=== PATIENT | male | born 1960 | race Caucasian/White ===

== ENCOUNTER 2017-05-17 12:57 | Emergency (ER) | payer OTHER ==
[2017-05-17 13:17] VITALS: RESP 16
[2017-05-17] MEDS ORDERED: ONDANSETRON DISINTEGRATING 4 MG TAB PO ONE (13:21)
--- NOTE | 2017-05-17 13:26 | CPEKG ---
Heart Rate: 73 RR Interval: 822 P-R Interval: 244 QRSD Interval: 108 QT Interval: 380 QTC Interval: 419 P Republic: 43 QRS Republic: -23 T Wave Republic: 11 EKG Severity - ABNORMAL ECG - EKG Impression: SINUS RHYTHM EKG Impression: FIRST DEGREE AV BLOCK Electronically Signed By: Vinh Sands 17-May-2017 15:09:24
--- NOTE | 2017-05-17 13:27 | EDPHY ---
H & P Time Seen by Provider: 05/17/17 13:10 HPI/ROS: HPI Cough, congestion. 57-year-old male by private vehicle. This patient just returned from a trip abroad to [facility]. He has been gone for 3 weeks. He returned yesterday. He reports that 2-3 days into his trip to [facility] he developed a cough productive of clear sputum with nasal congestion and clear rhinorrhea puffiness in his eyes, sore throat and a fullness sensation in his left ear. He was seen at a clinic in [place] the day before yesterday. He was prescribed Augmentin as well as Levaquin. He reports that he took 1 of the Augmentin tablets today but otherwise has not taken any of the other medications. He complains of continued symptoms as above with a nonproductive cough. He states that he has shortness of breath associated with the cough only. When he is not coughing he does not feel short of breath. When he is not coughing and physically exerting himself he does not feel short of breath. He has had some intermittent subjective fevers but not today. ROS: Constitutional: As above, no chills. No weakness. Eyes: No discharge. No changes in vision. ENT: As above. Respiratory: As above. Cardiac: No chest pain, no palpitations. Gastrointestinal: He has had mild nausea. No abdominal pain, no vomiting, no diarrhea. Genitourinary: No hematuria. No dysuria or increased frequency with urination. Musculoskeletal: No back pain. No neck pain. No myalgias or arthralgias. Skin: No rashes. Neurological: No headache. No focal weakness or altered sensation. Past medical history: Hypertension. Social history: Nonsmoker. He is here by himself. Drinks alcohol occasionally. Physical Exam: General Appearance: Alert, no distress. This patient is responding to questions appropriately and in full sentences. This patient appears well- hydrated and well-nourished. Eyes: Pupils equal and round no pallor or injection. No lid edema, erythema or injection. ENT, Mouth: Mucous membranes are moist. The pharyngeal tissues are unremarkable. No edema or swelling. No asymmetry suggestive of abscess. No erythema or exudates. Right tympanic membrane and external auditory canal are unremarkable on exam. Landmarks are clearly identifiable. Left external auditory canal is moderately edematous and swollen. The left tympanic membrane is moderately hyperemic but landmarks are identifiable. Respiratory: There are no retractions, lungs are clear to auscultation with good air movement bilaterally. Cardiovascular: Regular rate and rhythm. No murmur. Gastrointestinal: Abdomen is soft and nontender, no masses, bowel sounds normal. No focal tenderness at McBurney's point. No Whitaker sign. Neurological: Motor sensory function is grossly intact. Cranial nerves are normal. Gait is normal. Skin: Warm and dry, no rashes. Musculoskeletal: Neck is supple and nontender. No pain on flexion of the neck. No cervical, submental, submandibular lymphadenopathy. Extremities are symmetrical. All joints range without pain or impingement. Psychiatric: No agitation. No depression. Database: EKG: EKG time is 1:24 p.m.; EKG shows a narrow complex normal sinus rhythm with a ventricular rate of 73. Borderline first-degree AV block noted. The QRS, QT intervals are within normal limits. There are no ST-T wave changes indicative of ischemic or injury pattern. No evidence of right heart strain. Interpreted by me. Imaging: Chest x-ray PA and lateral; the cardiac mediastinal silhouette is unremarkable. No evidence of infiltrate or pneumothorax. Mild bronchitis. No other acute cardiopulmonary disease process noted. Interpreted by me. Procedures: Emergency department course: Vital signs reviewed. He is hypertensive. Vital signs are otherwise normal. He will be given 0.4 mg of oral Zofran for nausea. Chest x-ray and EKG obtained. 2:30 p.m., patient re-evaluated. Patient given 500 mg of amoxicillin orally and Ciprodex drops to the left ear for treatment of otitis externa and likely otitis media. Discussed results of his EKG and chest x-ray with him. Vital signs reviewed again and are unremarkable other than hypertension. Patient feels comfortable going home and I feel he is safe for discharge. He will be prescribed amoxicillin and Ciprodex. I discussed follow-up with his primary care physician for re-evaluation on Friday or Friday of this week. Return to emergency department precautions reviewed with him. All of his questions were answered. He was discharged in good condition. Differential Diagnosis: The differential diagnosis on this patient includes but is not limited to viral syndrome, bronchitis, possible otitis media with otitis externa. Pneumonia unlikely. This represents a partial list of diagnoses considered. These considerations are based on history, physical exam, past history, reassessment and diagnostic testing. Smoking Status: Never smoked Constitutional: Initial Vital Signs Temperature (C) 36.3 C 05/17/17 13:15 Heart Rate 78 05/17/17 13:15 Respiratory Rate 16 05/17/17 13:15 Blood Pressure 178/104 H 05/17/17 13:15 O2 Sat (%) 92 05/17/17 13:15 O2 Delivery Mode Room Air Allergies/Adverse Reactions: No Known Allergies Allergy (Verified 05/17/17 13:19) Home Medications: Medication Instructions Recorded Amoxicillin 05/17/17 Amoxicillin Trihydrate 500 mg PO Q6HRS #28 cap 05/17/17 [Amoxicillin 500mg cap] Atrovent Hfa (*) 05/17/17 Augmentin 500/125 MG TAB (*) 05/17/17 Levofloxacin 05/17/17 Medical Decision Making - Data Points Medications Given: Discontinued Medications Ondansetron HCl (Zofran Odt) 4 mg PO EDNOW ONE Stop: 05/17/17 13:22 Last Admin: 05/17/17 13:28 Dose: 4 mg Departure - Departure Disposition: Home, Routine, Self-Care Clinical Impression: Bronchitis, Upper respiratory infection, Otitis externa, Otitis media Condition: Good Instructions: Ear Infection (ED), Acute Bronchitis (ED) Additional Instructions: Read and follow provided instructions. Follow-up with your primary care physician in 1-2 days for re-evaluation. Take amoxicillin antibiotic as prescribed through entire course of treatment. Ciprodex and miotic drops: 4 drops into left ear twice daily for 5 days. Disregard and do not take the medications your prescribed in [place]. Return to the emergency department for worsening symptoms, worsening cough, high fever, shortness of breath, worsening ear pain, facial swelling or other serious concerns. Referrals: ESTEFANI ROLDAN [Primary Care Provider] - As per Instructions Prescriptions: Amoxicillin Trihydrate [Amoxicillin 500mg cap] 500 mg PO Q6HRS #28 cap
[2017-05-17] MEDS ORDERED: CIPROFLOXACIN HCL/DEXAMETH 7.5 ML OTIC DROPS LEFTEAR ONE (14:34)
[2017-05-17 14:58] VITALS: BP 132/85; PULSE 73; TEMP 98; O2SAT 93
== END 2017-05-17 14:59 | disposition home or self-care (01) ==
LOC: CED 12:57
DX: J20.9 Acute bronchitis, unspecified (principal); J06.9 Acute upper respiratory infection, unspecified; H60.92 Unspecified otitis externa, left ear; H66.92 Otitis media, unspecified, left ear; I10 Essential (primary) hypertension
CPT/HCPCS: 71046-PO

== ENCOUNTER 2018-07-27 17:33 | Emergency (ER) | payer OTHER ==
--- NOTE | 2018-07-27 19:18 | EDPHY ---
H & P Time Seen by Provider: 07/27/18 17:55 HPI/ROS: This patient presented to Urgent Care with cough, 10 days in duration feeling of chest congestion and green sputum production was noted to have significant hypertension so was sent to the emergency department for further evaluation. Patient reports that he feels associated mild fatigue. He has had headache intermittently over the past few weeks but responsive Tylenol and at the moment he does not have a headache. He denies any other acute complaints. He reports compliance with his losartan/hydrochlorothiazide 100 mg/25 mg respectively daily that is been on for the past year so for central hypertension. He has been taking [id number] Mucinex with added decongestant. ROS: Constitutional: No high fevers. He reports symptoms low-grade subjective fevers. HEENT: No significant nasal congestion. No sore throat. Pulmonary: No pleuritic pain or respiratory distress. No hemoptysis. Cardiovascular: No paroxysmal nocturnal dyspnea or leg swelling. No chest pain. GI: No nausea vomiting or abdominal pain. No diarrhea. Integumentary: No rash or diaphoresis. 7 point review of symptoms is performed and otherwise negative with exception of pertinent positives and negatives listed in HPI and ROS Smoking Status: Never smoked Physical Exam: Vitals are notable for initial hypertension with diastolic over 110 General Appearance: Alert, no distress. Eyes: Pupils equal and round no pallor or injection. ENT, Mouth: Mucous membranes moist. Respiratory: Mild rhonchi. No wheezing. No rales. Cardiovascular: Regular rate and rhythm. No murmur gallop rub. No peripheral edema. Gastrointestinal: Abdomen is soft and nontender, no masses, bowel sounds normal. Neurological: Alert with no focal deficits. Skin: Warm and dry, no rashes. Musculoskeletal: Neck is supple nontender. Extremities are symmetrical, full range of motion. Psychiatric: Mood and affect are normal. DIFFERENTIAL DIAGNOSIS: After history and physical exam differential diagnosis was considered for URI with cough, bronchitis, pneumonia, hypertensive urgency, central hypertension, rule out hypertensive emergency Constitutional: Initial Vital Signs Temperature (C) 36.7 C 07/27/18 17:45 Heart Rate 76 07/27/18 17:45 Respiratory Rate 16 07/27/18 17:45 Blood Pressure 221/114 H 07/27/18 17:45 O2 Sat (%) 94 07/27/18 17:45 O2 Delivery Mode Room Air Allergies/Adverse Reactions: No Known Allergies Allergy (Verified 07/27/18 17:45) Home Medications: Medication Instructions Recorded Amoxicillin 05/17/17 Amoxicillin Trihydrate 500 mg PO Q6HRS #28 cap 05/17/17 [Amoxicillin 500mg cap] Atrovent Hfa (*) 05/17/17 Augmentin 500/125 MG TAB (*) 05/17/17 Levofloxacin 05/17/17 Albuterol Hfa Anes Only [Proair 2 puffs IH Q4 PRN #1 mdi 07/27/18 Hfa Icu (*)] Azithromycin [Zithromax] 250 mg PO DAILY #6 tab 07/27/18 Benzonatate [Tessalon Pearles (RX)] 100 - 200 mg PO TID PRN #20 cap 07/27/18 MDM/Departure - MDM Diagnostics: Two view chest x-ray: Findings consistent with bronchitis. No significant cardiomegaly, CHF, focal infiltrates or other abnormal findings by my interpretation Imaging Results: Imaging Impressions Chest X-Ray 07/27/18 17:55 Impression: Probable mild bronchitis. No other findings for acute cardiopulmonary abnormality. ED Course/Re-evaluation: Without intervention this patient's the blood pressure decreased to 150s over 90s. I counseled regarding bronchitis. His rapid flu swab is negative. While as hypertension find no evidence of end-organ injury tonight. Given the spontaneous improvement in blood pressure without intervention will refer him on to his primary care physician for potential changes in his blood pressure medication. Will start him on Zithromax-1st dose given here in albuterol for his bronchitis. Answered all his questions prior to discharge home. He understands the need to return emergency department should he develop any significant worsening despite treatment plan - Depart Disposition: Home, Routine, Self-Care Clinical Impression: Acute bronchitis Qualifiers: Bronchitis organism: unspecified organism Qualified Code(s): J20.9 - Acute bronchitis, unspecified Hypertension Qualifiers: Hypertension type: essential hypertension Qualified Code(s): I10 - Essential ( primary) hypertension Condition: Good Instructions: Acute Bronchitis (ED), Chronic Hypertension (ED) Additional Instructions: Diagnoses: 1. Acute bronchitis 2. Hypertension Plan: Humidifier Albuterol inhaler for cough, wheeze or shortness of breath Zithromax antibiotic Tessalon Perles for cough prevents sleep Continue your antihypertensive medication-losartan/hydrochlorothiazide. Call your primary care physician tomorrow to arrange close follow-up appointment for a recheck of her blood pressure and consideration of additional blood pressure medication. Without intervention here tonight your blood pressure improved but remained high 150s over 90 Return emergency department if he developed chest pain, shortness of breath or other concerns despite treatment plan Prescriptions: Albuterol Hfa Anes Only [Proair Hfa Icu (*)] 2 puffs IH Q4 PRN #1 mdi PRN Reason: Wheezing Azithromycin [Zithromax] 250 mg PO DAILY #6 tab Benzonatate [Tessalon Pearles (RX)] 100 - 200 mg PO TID PRN #20 cap PRN Reason: cough Referrals: Preethi Rice PA [Primary Care Provider] - As per Instructions
[2018-07-27 19:22] VITALS: BP 152/91
--- NOTE | 2018-07-27 23:02 | CPEKG ---
Test Reason : OPEN Blood Pressure : / mmHG Vent. Rate : 069 BPM Atrial Rate : 069 BPM P-R Int : 235 ms QRS Dur : 107 ms QT Int : 381 ms P-R-T Axes : 044 -28 003 degrees QTc Int : 408 ms Sinus rhythm Prolonged WA interval Borderline left axis deviation Confirmed by Solis Mcknight ([id number]) on 07/27/2018 11:02:06 PM Referred By: SOLIS MCKNIGHT Confirmed By:Solis Mcknight
== END 2018-07-27 19:34 | disposition home or self-care (01) ==
LOC: CED 17:33
DX: J20.9 Acute bronchitis, unspecified (principal); I10 Essential (primary) hypertension
CPT/HCPCS: 71046-PO; 99284-ER